=== PATIENT | male | born 1955 | race Caucasian/White ===

== ENCOUNTER 2016-07-20 01:38 | Emergency (ER) | payer SELFPAY ==
[~2016-07-20] VITALS: Ht 172.7 cm; Wt 102.0 kg
[~2016-07-20 01:38] MED LIST: CAC650 PO; FOLIC ACID0.4 MG PO; L20 PO; LAC30L PO; NEO500 PO; VITAMIN B12500 MCG PO; XIFAXAN550 M1 PO
[2016-07-20 03:45] VITALS: BP 96/55
== END 2016-07-20 03:45 | disposition home or self-care (01) ==
LOC: ED 01:38
DX: M54.5 Low back pain (principal); G89.29 Other chronic pain; I10 Essential (primary) hypertension
CPT/HCPCS: J1885

== ENCOUNTER 2016-07-23 00:37 | Emergency (ER) | payer OTHER ==
[2016-07-23 02:20] LABS: BASOPHIL % 0.9 % (0-2)
[2016-07-23 02:26] LABS: RED CELL DISTRIBUTION WIDTH 18.5 % (11.5-14.5)
[2016-07-23 02:28] LABS: CALCIUM 7.6 mg/dL (8.5-10.1); CARBON DIOXIDE 25.9 mmol/L (21-32); CHLORIDE SERUM 105 mmol/L (98-107); CREATININE SERUM 0.7 mg/dL (0.7-1.3); GFR1 > 60 mL/min; GLUCOSE SERUM 115 mg/dL (74-106); PLATELET COUNT 36 x10^3mcL (130-400); POTASSIUM SERUM 3.2 mmol/L (3.5-5.1); SODIUM SERUM 142 mmol/L (136-145)
[2016-07-23 02:32] LABS: ALKALINE PHOSPHATASE 175 U/L (46-116); ALT/SGPT 85 U/L (16-63); AST/SGOT 169 U/L (15-37); BILIRUBIN TOTAL 4.58 mg/dL (0.20-1.00); TOTAL PROTEIN, SERUM 7.7 g/dL (6.4-8.2)
[2016-07-23 02:33] LABS: ALBUMIN 2.8 g/dL (3.4-5.0)
[2016-07-23 04:03] VITALS: BP 133/79
== END 2016-07-23 04:03 | disposition home or self-care (01) ==
LOC: ED 00:37
PROVIDERS: Emergency Medicine
DX: M54.5 Low back pain (principal); R60.0 Localized edema; F10.10 Alcohol abuse, uncomplicated; I10 Essential (primary) hypertension; G89.29 Other chronic pain; Z59.0 Homelessness
CPT/HCPCS: 83880; Q0092

== ENCOUNTER 2016-08-04 01:15 | Emergency (ER) | payer OTHER ==
[2016-08-04 04:18] LABS: CALCIUM 7.6 mg/dL (8.5-10.1); CARBON DIOXIDE 24.4 mmol/L (21-32); CHLORIDE SERUM 109 mmol/L (98-107); CREATININE SERUM 0.6 mg/dL (0.7-1.3); GFR1 > 60 mL/min; GLUCOSE SERUM 104 mg/dL (74-106); POTASSIUM SERUM 3.5 mmol/L (3.5-5.1); SODIUM SERUM 141 mmol/L (136-145)
[2016-08-04 04:19] LABS: RED CELL DISTRIBUTION WIDTH 18.4 % (11.5-14.5)
[2016-08-04 04:20] LABS: PLATELET COUNT 30 x10^3mcL (130-400)
[2016-08-04 04:30] LABS: ALBUMIN 2.7 g/dL (3.4-5.0); ALKALINE PHOSPHATASE 197 U/L (46-116); ALT/SGPT 75 U/L (16-63); AST/SGOT 157 U/L (15-37); BILIRUBIN TOTAL 4.04 mg/dL (0.20-1.00); TOTAL PROTEIN, SERUM 7.7 g/dL (6.4-8.2)
[2016-08-04 04:46] LABS: BAND NEUTROPHIL 2 % (0-10); MONOCYTE 11 % (0-7); PLATELET MORPHOLOGY PLATELETS DECREASED; SEGMENTED NEUTROPHILS 46 % (37-75); ovalocyte/elliptocyte 1+; rbc morphology (normal/abnorm) ABNORMAL (NORMAL); tear drop cell (dacryocyte) 1+
[2016-08-04 06:11] VITALS: BP 128/80
== END 2016-08-04 06:11 | disposition home or self-care (01) ==
LOC: ED 01:15
PROVIDERS: Emergency Medicine
DX: M79.605 Pain in left leg (principal); M79.604 Pain in right leg; R60.9 Edema, unspecified; I10 Essential (primary) hypertension
CPT/HCPCS: 83880

== ENCOUNTER 2016-08-05 23:12 | Emergency (ER) | payer OTHER ==
[2016-08-06 02:38] VITALS: BP 174/74
== END 2016-08-06 02:39 | disposition home or self-care (01) ==
LOC: ED 23:12
DX: R60.0 Localized edema (principal); D61.818 Other pancytopenia; I10 Essential (primary) hypertension; F10.10 Alcohol abuse, uncomplicated; G89.29 Other chronic pain

== ENCOUNTER 2016-09-19 19:52 | Emergency (ER) | payer MEDICAID ==
[2016-09-19 22:09] LABS: BASOPHIL % 1.4 % (0-2)
[2016-09-19 22:11] LABS: PLATELET COUNT 56 x10^3mcL (130-400); RED CELL DISTRIBUTION WIDTH 21.2 % (11.5-14.5)
[2016-09-19 22:23] LABS: CALCIUM 7.9 mg/dL (8.5-10.1); CARBON DIOXIDE 20.1 mmol/L (21-32); CHLORIDE SERUM 109 mmol/L (98-107); CREATININE SERUM 0.6 mg/dL (0.7-1.3); GFR1 > 60 mL/min; GLUCOSE SERUM 103 mg/dL (74-106); POTASSIUM SERUM 3.7 mmol/L (3.5-5.1); SODIUM SERUM 140 mmol/L (136-145)
[2016-09-19 22:26] LABS: ALKALINE PHOSPHATASE 117 U/L (46-116); ALT/SGPT 27 U/L (16-63); AST/SGOT 47 U/L (15-37); BILIRUBIN TOTAL 3.03 mg/dL (0.20-1.00); TOTAL PROTEIN, SERUM 7.3 g/dL (6.4-8.2)
[2016-09-19 22:27] LABS: ALBUMIN 2.4 g/dL (3.4-5.0)
[2016-09-19 23:30] VITALS: BP 114/77
== END 2016-09-19 23:30 | disposition home or self-care (01) ==
LOC: ED 19:52
PROVIDERS: Emergency Medicine
DX: R60.0 Localized edema (principal); I10 Essential (primary) hypertension; K74.60 Unspecified cirrhosis of liver; G89.29 Other chronic pain
CPT/HCPCS: 83880; Q0092

== ENCOUNTER 2016-09-28 21:50 | Emergency (ER) | payer MEDICAID ==
[2016-09-29 01:59] VITALS: BP 135/88
== END 2016-09-29 01:59 | disposition home or self-care (01) ==
LOC: ED 21:50
DX: R60.0 Localized edema (principal); B35.3 Tinea pedis

== ENCOUNTER 2016-10-06 19:08 | Emergency (ER) | payer OTHER ==
[2016-10-06 20:41] VITALS: BP 103/61
== END 2016-10-06 20:40 | disposition home or self-care (01) ==
LOC: ED 19:08
DX: R06.00 Dyspnea, unspecified (principal); G89.29 Other chronic pain; M54.9 Dorsalgia, unspecified; I10 Essential (primary) hypertension; K74.60 Unspecified cirrhosis of liver

== ENCOUNTER 2016-10-06 21:11 | Inpatient (IN) | payer MEDICAID ==
[~2016-10-06] VITALS: Ht 172.7 cm; Wt 104.5 kg
[2016-10-06 23:02] LABS: ALBUMIN 2.7 g/dL (3.4-5.0); ALKALINE PHOSPHATASE 125 U/L (46-116); ALT/SGPT 34 U/L (16-63); AST/SGOT 73 U/L (15-37); BILIRUBIN TOTAL 5.21 mg/dL (0.20-1.00); CARBON DIOXIDE 25.2 mmol/L (21-32); CHLORIDE SERUM 103 mmol/L (98-107); CHOLESTEROL 101 mg/dL (<200); CREATININE SERUM 0.7 mg/dL (0.7-1.3); GFR1 > 60 mL/min; GLUCOSE SERUM 101 mg/dL (74-106); HDL CHOLESTEROL 34 mg/dL (40-60); MAGNESIUM 1.7 mg/dL (1.8-2.4); SODIUM SERUM 137 mmol/L (136-145); TOTAL PROTEIN, SERUM 8.4 g/dL (6.4-8.2)
[2016-10-06 23:09] LABS: MONOCYTE 5 % (0-7); SEGMENTED NEUTROPHILS 55 % (37-75)
[2016-10-06 23:10] LABS: BASOPHIL 1 % (0-2); rbc morphology (normal/abnorm) ABNORMAL (NORMAL)
[2016-10-06 23:11] LABS: PLATELET COUNT 32 x10^3mcL (130-400)
[2016-10-07 01:57] LABS: CHOLESTEROL/HDL RATIO 3.1
[2016-10-07 02:10] LABS: FREE T4 1.38 ng/dL (0.76-1.46); FREE THYROXINE INDEX 2.6 ug/dL (1.4-4.5); T4(THYROXINE) 7.4 ug/dL (4.7-13.3)
[2016-10-07 02:21] VITALS: BP 94/54
[2016-10-07 04:21] LABS: T3 TOTAL 0.88 ng/mL
[2016-10-07 05:49] VITALS: BP 100/58
[2016-10-07 07:16] LABS: PLATELET COUNT 30 x10^3mcL (130-400)
[2016-10-07 07:57] LABS: CALCIUM 7.6 mg/dL (8.5-10.1); CARBON DIOXIDE 24.3 mmol/L (21-32); CHLORIDE SERUM 105 mmol/L (98-107); CREATININE SERUM 0.6 mg/dL (0.7-1.3); GFR1 > 60 mL/min; GLUCOSE SERUM 99 mg/dL (74-106); MAGNESIUM 1.7 mg/dL (1.8-2.4); PHOSPHOROUS 3.9 mg/dL (2.5-4.9); SODIUM SERUM 141 mmol/L (136-145)
[2016-10-07 07:58] LABS: UA SPECIFIC GRAVITY 1.025 (1.005-1.035); microscopic required? YES; urine erythrocyte 2+ (NEGATIVE)
[2016-10-07 08:11] LABS: AMPHETAMINE QUAL UR NONE DETECTED (NEG <=1000)
[2016-10-07 09:54] VITALS: BP 117/63
[2016-10-07 10:19] LABS: BAND NEUTROPHIL 5 % (0-10); BASOPHIL 0 % (0-2); SEGMENTED NEUTROPHILS 48 % (37-75)
[2016-10-07 10:20] LABS: MONOCYTE 17 % (0-7)
[2016-10-07 10:21] LABS: PLATELET MORPHOLOGY PLATELETS DECREASED; rbc morphology (normal/abnorm) ABNORMAL (NORMAL)
[2016-10-07 10:23] LABS: target cell (codocyte) 1+
[2016-10-07 10:24] LABS: ovalocyte/elliptocyte 1+
[2016-10-07 14:20] VITALS: BP 120/78
[2016-10-07 17:59] VITALS: BP 123/73
[2016-10-07 21:51] VITALS: BP 148/73
[2016-10-08 06:12] VITALS: BP 119/79
[2016-10-08 07:14] LABS: CALCIUM 7.7 mg/dL (8.5-10.1); CARBON DIOXIDE 22.7 mmol/L (21-32); CHLORIDE SERUM 105 mmol/L (98-107); CREATININE SERUM 0.6 mg/dL (0.7-1.3); GFR1 > 60 mL/min; GLUCOSE SERUM 87 mg/dL (74-106); MAGNESIUM 1.6 mg/dL (1.8-2.4); PHOSPHOROUS 3.1 mg/dL (2.5-4.9); POTASSIUM SERUM 3.6 mmol/L (3.5-5.1); SODIUM SERUM 139 mmol/L (136-145)
[2016-10-08 07:23] LABS: RED CELL DISTRIBUTION WIDTH 21.3 % (11.5-14.5)
[2016-10-08 07:24] LABS: PLATELET COUNT 37 x10^3mcL (130-400)
[2016-10-08 09:18] LABS: BAND NEUTROPHIL 1 % (0-10); MONOCYTE 10 % (0-7); SEGMENTED NEUTROPHILS 58 % (37-75)
[2016-10-08 09:19] LABS: rbc morphology (normal/abnorm) ABNORMAL (NORMAL)
[2016-10-08 09:21] LABS: PLATELET MORPHOLOGY PLATELETS DECREASED
[2016-10-08 10:09] VITALS: BP 122/753
[2016-10-08] MEDS ORDERED: FOL1 PO (11:38)
[2016-10-08] MEDS ORDERED: THERA TABS1 TAB PO (11:38)
[2016-10-08] MEDS ORDERED: MAC100 PO (11:38)
[2016-10-08] MEDS ORDERED: THI100 PO (11:38)
[2016-10-08] MEDS ORDERED: ALD50 PO (11:40)
[2016-10-08] MEDS ORDERED: LAC PO (14:04)
[2016-10-08] MEDS ORDERED: ATI1 PO (14:07)
[2016-10-08] MEDS ORDERED: LAC30L PO (14:11)
[2016-10-08] MEDS ORDERED: LASIX40 MG PO (14:26)
[2016-10-08 15:02] VITALS: BP 122/753
== END 2016-10-08 16:20 | disposition home or self-care (01) | DRG 816 ==
LOC: ED 21:11 → MU 23:49 → DU 23:49 → MU 10-08 06:04
PROVIDERS: Emergency Medicine; ADMIT Family Medicine
DX: T51.0X1A Toxic effect of ethanol, accidental (unintentional), initial encounter (principal); N17.0 Acute kidney failure with tubular necrosis; E43 Unspecified severe protein-calorie malnutrition; G92 Toxic encephalopathy; D61.818 Other pancytopenia; K70.30 Alcoholic cirrhosis of liver without ascites; I50.30 Unspecified diastolic (congestive) heart failure; N39.0 Urinary tract infection, site not specified; K71.11 Toxic liver disease with hepatic necrosis, with coma; R31.9 Hematuria, unspecified; F10.229 Alcohol dependence with intoxication, unspecified; E87.6 Hypokalemia; E83.42 Hypomagnesemia; I10 Essential (primary) hypertension; Z59.0 Homelessness; Y90.8 Blood alcohol level of 240 mg/100 ml or more; Y92.89 Other specified places as the place of occurrence of the external cause
CPT/HCPCS: 83880; 84439; G0480; J0696; J1940; J3480; J7030; Q0092

== ENCOUNTER 2016-10-09 01:14 | Emergency (ER) | payer MEDICAID ==
[~2016-10-09 01:14] MED LIST changes: +ALD50 PO; +ATI1 PO; +FOL1 PO; +LAC PO; +LASIX40 MG PO; +MAC100 PO; +THERA TABS1 TAB PO; +THI100 PO
[2016-10-09 02:52] LABS: BASOPHIL % 1.4 % (0-2)
[2016-10-09 02:56] LABS: PLATELET COUNT 27 x10^3mcL (130-400); RED CELL DISTRIBUTION WIDTH 21.2 % (11.5-14.5)
[2016-10-09 03:02] LABS: ALKALINE PHOSPHATASE 108 U/L (46-116); ALT/SGPT 25 U/L (16-63); AST/SGOT 52 U/L (15-37); BILIRUBIN TOTAL 5.74 mg/dL (0.20-1.00); CALCIUM 7.8 mg/dL (8.5-10.1); CARBON DIOXIDE 20.3 mmol/L (21-32); CHLORIDE SERUM 105 mmol/L (98-107); CREATININE SERUM 0.8 mg/dL (0.7-1.3); GFR1 > 60 mL/min; GLUCOSE SERUM 125 mg/dL (74-106); SODIUM SERUM 138 mmol/L (136-145); TOTAL PROTEIN, SERUM 7.5 g/dL (6.4-8.2)
[2016-10-09 03:03] LABS: ALBUMIN 2.4 g/dL (3.4-5.0)
[2016-10-09 05:16] VITALS: BP 116/83
== END 2016-10-09 05:16 | disposition home or self-care (01) ==
LOC: ED 01:14
PROVIDERS: Emergency Medicine
DX: R60.0 Localized edema (principal); I10 Essential (primary) hypertension; G89.29 Other chronic pain
CPT/HCPCS: 36415; 83880; J3475; Q0092

== ENCOUNTER 2016-10-12 00:14 | Emergency (ER) | payer MEDICAID ==
[2016-10-12 02:47] VITALS: BP 122/58
== END 2016-10-12 02:47 | disposition home or self-care (01) ==
LOC: ED 00:14
DX: R60.0 Localized edema (principal); G89.29 Other chronic pain; I10 Essential (primary) hypertension

== ENCOUNTER 2016-12-02 21:25 | Emergency (ER) | payer MEDICAID ==
[~2016-12-02] VITALS: Ht 172.7 cm; Wt 104.3 kg
[2016-12-02 23:44] LABS: CARBON DIOXIDE 23.4 mmol/L (21-32); CHLORIDE SERUM 109 mmol/L (98-107); CREATININE SERUM 0.9 mg/dL (0.7-1.3); GFR1 > 60 mL/min; GLUCOSE SERUM 144 mg/dL (74-106); POTASSIUM SERUM 3.3 mmol/L (3.5-5.1); SODIUM SERUM 142 mmol/L (136-145)
[2016-12-02 23:48] LABS: ALKALINE PHOSPHATASE 159 U/L (46-116); ALT/SGPT 28 U/L (16-63); AST/SGOT 74 U/L (15-37); BILIRUBIN TOTAL 4.7 mg/dL (0.20-1.00); TOTAL PROTEIN, SERUM 8.2 g/dL (6.4-8.2)
[2016-12-02 23:49] LABS: ALBUMIN 2.7 g/dL (3.4-5.0)
[2016-12-02 23:57] LABS: RED CELL DISTRIBUTION WIDTH 21.2 % (11.5-14.5)
[2016-12-02 23:58] LABS: PLATELET COUNT 24 x10^3mcL (130-400)
[2016-12-03 00:27] LABS: BAND NEUTROPHIL 4 % (0-10); METAMYELOCTE 1 % (0-2); MONOCYTE 9 % (0-7); SEGMENTED NEUTROPHILS 38 % (37-75)
[2016-12-03 00:29] LABS: rbc morphology (normal/abnorm) ABNORMAL (NORMAL)
[2016-12-03 00:30] LABS: ovalocyte/elliptocyte 1+
[2016-12-03 00:38] VITALS: BP 118/72
== END 2016-12-03 00:38 | disposition home or self-care (01) ==
LOC: ED 21:25
PROVIDERS: Emergency Medicine
DX: R60.0 Localized edema (principal); G89.29 Other chronic pain; K74.60 Unspecified cirrhosis of liver; Z79.899 Other long term (current) drug therapy
CPT/HCPCS: 36415; 83880

== ENCOUNTER 2016-12-23 21:59 | Emergency (ER) | payer MEDICAID ==
[2016-12-24 02:41] VITALS: BP 106/61
== END 2016-12-24 02:30 | disposition home or self-care (01) ==
LOC: ED 21:59
DX: F10.20 Alcohol dependence, uncomplicated (principal); K74.60 Unspecified cirrhosis of liver; B19.20 Unspecified viral hepatitis C without hepatic coma
CPT/HCPCS: Q0162

== ENCOUNTER 2016-12-26 18:21 | Emergency (ER) | payer MEDICAID ==
[2016-12-26 22:33] LABS: BASOPHIL % 0.8 % (0-2)
[2016-12-26 22:39] LABS: RED CELL DISTRIBUTION WIDTH 21.6 % (11.5-14.5)
[2016-12-26 22:40] LABS: PLATELET COUNT 42 x10^3mcL (130-400)
[2016-12-26 22:45] LABS: CARBON DIOXIDE 23.2 mmol/L (21-32); CHLORIDE SERUM 108 mmol/L (98-107); CREATININE SERUM 0.8 mg/dL (0.7-1.3); GFR1 > 60 mL/min; GLUCOSE SERUM 92 mg/dL (74-106); POTASSIUM SERUM 3.5 mmol/L (3.5-5.1); SODIUM SERUM 143 mmol/L (136-145)
[2016-12-26 22:50] LABS: ALKALINE PHOSPHATASE 139 U/L (46-116); ALT/SGPT 28 U/L (16-63); AST/SGOT 73 U/L (15-37); TOTAL PROTEIN, SERUM 7.8 g/dL (6.4-8.2)
[2016-12-26 22:52] LABS: ALBUMIN 2.6 g/dL (3.4-5.0)
[2016-12-26 23:32] VITALS: BP 120/78
[2016-12-29 11:38] LABS: RED BLOOD CELLS 3.85 M/mm3 (4.52-5.90)
== END 2016-12-26 23:33 | disposition home or self-care (01) ==
LOC: ED 18:21
PROVIDERS: Emergency Medicine
DX: K70.30 Alcoholic cirrhosis of liver without ascites (principal)
CPT/HCPCS: 36415

== ENCOUNTER 2017-01-03 11:16 | Emergency (ER) | payer MEDICAID ==
[~2017-01-03] VITALS: Ht 172.7 cm; Wt 99.8 kg
[2017-01-03 12:25] LABS: RED CELL DISTRIBUTION WIDTH 22.5 % (11.5-14.5)
[2017-01-03 12:42] LABS: BAND NEUTROPHIL 2 % (0-10); BASOPHIL 4 % (0-2); MONOCYTE 10 % (0-7); SEGMENTED NEUTROPHILS 72 % (37-75); rbc morphology (normal/abnorm) ABNORMAL (NORMAL)
[2017-01-03 12:43] LABS: PLATELET MORPHOLOGY D
[2017-01-03 13:06] LABS: CALCIUM 7.6 mg/dL (8.5-10.1); CARBON DIOXIDE 24.2 mmol/L (21-32); CHLORIDE SERUM 109 mmol/L (98-107); CREATININE SERUM 0.6 mg/dL (0.7-1.3); GFR1 > 60 mL/min; GLUCOSE SERUM 113 mg/dL (74-106); POTASSIUM SERUM 3.3 mmol/L (3.5-5.1); SODIUM SERUM 141 mmol/L (136-145)
[2017-01-03 13:10] LABS: PLATELET COUNT 39 x10^3mcL (130-400)
[2017-01-03 13:11] LABS: ALKALINE PHOSPHATASE 94 U/L (46-116); ALT/SGPT 19 U/L (16-63); AST/SGOT 54 U/L (15-37); BILIRUBIN TOTAL 4.11 mg/dL (0.20-1.00); TOTAL PROTEIN, SERUM 7.4 g/dL (6.4-8.2)
[2017-01-03 13:13] LABS: ALBUMIN 2.7 g/dL (3.4-5.0)
[2017-01-03 15:50] VITALS: BP 124/76
== END 2017-01-03 15:51 | disposition short-term general hospital (02) ==
LOC: ED 11:16
PROVIDERS: Emergency Medicine
DX: S63.502A Unspecified sprain of left wrist, initial encounter (principal); S16.1XXA Strain of muscle, fascia and tendon at neck level, initial encounter; S01.312A Laceration without foreign body of left ear, initial encounter; S06.5X9A Traumatic subdural hemorrhage with loss of consciousness of unspecified duration, initial encounter; F10.20 Alcohol dependence, uncomplicated; K74.60 Unspecified cirrhosis of liver; B19.20 Unspecified viral hepatitis C without hepatic coma; X58.XXXA Exposure to other specified factors, initial encounter; Y93.89 Activity, other specified; Y99.8 Other external cause status; Y92.89 Other specified places as the place of occurrence of the external cause
CPT/HCPCS: G0480; J7050; P9059; Q0092; Q0162

== ENCOUNTER 2017-02-02 20:56 | Emergency (ER) | payer MEDICAID ==
[2017-02-02 21:44] LABS: CALCIUM 7.6 mg/dL (8.5-10.1); CARBON DIOXIDE 23.7 mmol/L (21-32); CHLORIDE SERUM 109 mmol/L (98-107); CREATININE SERUM 0.7 mg/dL (0.7-1.3); GFR1 > 60 mL/min; GLUCOSE SERUM 100 mg/dL (74-106); POTASSIUM SERUM 3.2 mmol/L (3.5-5.1); SODIUM SERUM 140 mmol/L (136-145)
[2017-02-02 21:50] LABS: LIPASE 141 IU/L (73-393)
[2017-02-03 00:59] VITALS: BP 127/79
== END 2017-02-03 01:00 | disposition home or self-care (01) ==
LOC: ED 20:56
PROVIDERS: Emergency Medicine Emergency Medical Services
DX: F10.129 Alcohol abuse with intoxication, unspecified (principal); E87.6 Hypokalemia; K74.60 Unspecified cirrhosis of liver
CPT/HCPCS: G0480

== ENCOUNTER 2017-02-10 23:03 | Emergency (ER) | payer OTHER ==
[2017-02-11 05:57] VITALS: BP 132/76
== END 2017-02-11 05:57 | disposition home or self-care (01) ==
LOC: ED 23:03
DX: R60.0 Localized edema (principal); K74.60 Unspecified cirrhosis of liver; F10.20 Alcohol dependence, uncomplicated; B19.20 Unspecified viral hepatitis C without hepatic coma

== ENCOUNTER 2017-03-01 19:39 | Emergency (ER) | payer OTHER ==
[2017-03-01 19:56] VITALS: BP 127/79
== END 2017-03-01 21:33 | disposition home or self-care (01) ==
LOC: ED 19:39
DX: R60.0 Localized edema (principal); M79.671 Pain in right foot; M79.672 Pain in left foot; F17.210 Nicotine dependence, cigarettes, uncomplicated; F10.20 Alcohol dependence, uncomplicated; Z59.0 Homelessness

== ENCOUNTER 2017-03-02 19:54 | Emergency (ER) | payer OTHER ==
[2017-03-02 20:47] VITALS: BP 114/62
== END 2017-03-02 20:47 | disposition home or self-care (01) ==
LOC: ED 19:54
DX: M79.1 Myalgia (principal); Z59.0 Homelessness

== ENCOUNTER 2017-03-07 18:41 | Emergency (ER) | payer OTHER ==
[~2017-03-07] VITALS: Ht 172.7 cm; Wt 117.9 kg
[2017-03-08 06:04] VITALS: BP 142/84
== END 2017-03-08 06:04 | disposition home or self-care (01) ==
LOC: ED 18:41
DX: F10.229 Alcohol dependence with intoxication, unspecified (principal); I10 Essential (primary) hypertension; K74.60 Unspecified cirrhosis of liver; B19.20 Unspecified viral hepatitis C without hepatic coma; M79.671 Pain in right foot; M79.672 Pain in left foot

== ENCOUNTER 2017-03-09 20:28 | Emergency (ER) | payer OTHER ==
[~2017-03-09] VITALS: Ht 167.6 cm; Wt 95.2 kg
[2017-03-09 21:14] LABS: CALCIUM 7.6 mg/dL (8.5-10.1); CARBON DIOXIDE 27.4 mmol/L (21-32); CHLORIDE SERUM 106 mmol/L (98-107); CREATININE SERUM 0.7 mg/dL (0.7-1.3); GFR1 > 60 mL/min; GLUCOSE SERUM 103 mg/dL (74-106); POTASSIUM SERUM 3.3 mmol/L (3.5-5.1); SODIUM SERUM 141 mmol/L (136-145)
[2017-03-09 21:41] VITALS: BP 138/92
== END 2017-03-09 21:41 | disposition home or self-care (01) ==
LOC: ED 20:28
PROVIDERS: Emergency Medicine
DX: M79.604 Pain in right leg (principal); M79.605 Pain in left leg; F10.10 Alcohol abuse, uncomplicated; E87.6 Hypokalemia; M79.1 Myalgia; I10 Essential (primary) hypertension; K74.60 Unspecified cirrhosis of liver
CPT/HCPCS: 36415; J1885

== ENCOUNTER 2017-03-13 21:14 | Emergency (ER) | payer OTHER ==
[2017-03-13 21:27] VITALS: BP 121/79
== END 2017-03-13 23:50 | disposition home or self-care (01) ==
LOC: ED 21:14
DX: M79.604 Pain in right leg (principal); M79.605 Pain in left leg; F10.10 Alcohol abuse, uncomplicated; I10 Essential (primary) hypertension

== ENCOUNTER 2017-05-15 01:46 | Emergency (ER) | payer OTHER ==
[~2017-05-15] VITALS: Ht 172.7 cm; Wt 97.5 kg
[2017-05-15 01:58] VITALS: Ht 172.7 cm; Wt 97.5 kg
[2017-05-15 03:04] VITALS: BP 144/78
== END 2017-05-15 03:04 | disposition home or self-care (01) ==
LOC: ED 01:46
DX: R30.0 Dysuria (principal); M79.605 Pain in left leg; M79.604 Pain in right leg; F10.10 Alcohol abuse, uncomplicated; M25.579 Pain in unspecified ankle and joints of unspecified foot

== ENCOUNTER 2017-05-17 22:51 | Emergency (ER) | payer OTHER ==
[2017-05-18 02:50] VITALS: BP 130/77
== END 2017-05-18 02:50 | disposition home or self-care (01) ==
LOC: ED 22:51
DX: F10.129 Alcohol abuse with intoxication, unspecified (principal); B19.20 Unspecified viral hepatitis C without hepatic coma; Z59.0 Homelessness
CPT/HCPCS: G0480; Q0162

== ENCOUNTER 2017-05-21 19:06 | Emergency (ER) | payer OTHER ==
[~2017-05-21] VITALS: Ht 172.7 cm; Wt 99.8 kg
[2017-05-21 19:46] VITALS: Ht 172.7 cm; Wt 99.8 kg
[2017-05-21 22:02] LABS: microscopic required? YES; urine erythrocyte TRACE (NEGATIVE)
[2017-05-21 22:04] VITALS: BP 121/80
[2017-05-21 22:11] LABS: AMPHETAMINE QUAL UR NONE DETECTED (NEG <=1000)
== END 2017-05-21 22:32 | disposition home or self-care (01) ==
LOC: ED 19:06
PROVIDERS: Emergency Medicine
DX: N39.0 Urinary tract infection, site not specified (principal); I10 Essential (primary) hypertension; Z59.0 Homelessness
CPT/HCPCS: 82962

== ENCOUNTER 2017-05-22 03:20 | Emergency (ER) | payer OTHER ==
[~2017-05-22] VITALS: Ht 172.7 cm; Wt 99.8 kg
[2017-05-22 03:29] VITALS: Ht 172.7 cm; Wt 99.8 kg
[2017-05-22 04:27] VITALS: BP 133/78
== END 2017-05-22 04:27 | disposition home or self-care (01) ==
LOC: ED 03:20
DX: R04.0 Epistaxis (principal); I10 Essential (primary) hypertension; F10.20 Alcohol dependence, uncomplicated

== ENCOUNTER 2017-05-24 01:54 | Emergency (ER) | payer OTHER ==
[~2017-05-24] VITALS: Ht 172.7 cm; Wt 99.8 kg
[2017-05-24 02:13] VITALS: BP 136/84; Ht 172.7 cm; Wt 99.8 kg
== END 2017-05-24 03:27 | disposition home or self-care (01) ==
LOC: ED 01:54
DX: S86.912A Strain of unspecified muscle(s) and tendon(s) at lower leg level, left leg, initial encounter (principal); S86.911A Strain of unspecified muscle(s) and tendon(s) at lower leg level, right leg, initial encounter; F10.229 Alcohol dependence with intoxication, unspecified; I10 Essential (primary) hypertension; K74.60 Unspecified cirrhosis of liver; B19.20 Unspecified viral hepatitis C without hepatic coma; X58.XXXA Exposure to other specified factors, initial encounter; Y93.89 Activity, other specified; Y99.8 Other external cause status; Y92.89 Other specified places as the place of occurrence of the external cause

== ENCOUNTER 2017-05-25 19:44 | Inpatient (IN) | payer OTHER ==
[~2017-05-25] VITALS: Ht 172.7 cm; Wt 94.1 kg
[2017-05-25 21:16] LABS: PLATELET COUNT 31 x10^3mcL (130-400); RED CELL DISTRIBUTION WIDTH 18.5 % (11.5-14.5)
[2017-05-25 21:23] LABS: ALKALINE PHOSPHATASE 164 U/L (46-116); ALT/SGPT 34 U/L (16-63); AST/SGOT 91 U/L (15-37); BILIRUBIN TOTAL 5.05 mg/dL (0.20-1.00); CALCIUM 8.2 mg/dL (8.5-10.1); CARBON DIOXIDE 23.7 mmol/L (21-32); CHLORIDE SERUM 104 mmol/L (98-107); CREATININE SERUM 0.7 mg/dL (0.7-1.3); GFR1 > 60 mL/min; GLUCOSE SERUM 89 mg/dL (74-106); SODIUM SERUM 137 mmol/L (136-145)
[2017-05-25 21:24] LABS: TOTAL PROTEIN, SERUM 9.3 g/dL (6.4-8.2)
[2017-05-25 21:25] LABS: ALBUMIN 2.4 g/dL (3.4-5.0)
[2017-05-25 21:26] LABS: POTASSIUM SERUM 2.8 mmol/L (3.5-5.1)
[2017-05-25 21:54] LABS: BAND NEUTROPHIL 3 % (0-10); METAMYELOCTE 1 % (0-2); MONOCYTE 6 % (0-7); SEGMENTED NEUTROPHILS 59 % (37-75)
[2017-05-25 21:56] LABS: PLATELET MORPHOLOGY PLATELETS DECREASED; ovalocyte/elliptocyte 1+; rbc morphology (normal/abnorm) ABNORMAL (NORMAL)
[2017-05-25 23:55] LABS: TOTAL IRON BINDING CAPACITY 345 ug/dL (250-450)
[2017-05-25 23:58] LABS: MAGNESIUM 1.5 mg/dL (1.8-2.4); PHOSPHOROUS 3.4 mg/dL (2.5-4.9)
[2017-05-26] VITALS (8 sets, daily range): BP systolic 123–139; BP diastolic 63–84
[2017-05-26 00:03] LABS: AMPHETAMINE QUAL UR NONE DETECTED (NEG <=1000)
[2017-05-26 00:03] LABS: T3 TOTAL 1.01 ng/mL
[2017-05-26 00:05] LABS: RED BLOOD CELLS 3.6 M/mm3 (4.52-5.90)
[2017-05-26 00:11] LABS: FREE T4 1.31 ng/dL (0.76-1.46); FREE THYROXINE INDEX 2.4 ug/dL (1.4-4.5); T4(THYROXINE) 6.9 ug/dL (4.7-13.3)
[2017-05-26 00:17] LABS: CHOLESTEROL/HDL RATIO 2.6; IRON 223 ug/dL (65-170)
[2017-05-26 07:12] LABS: RED CELL DISTRIBUTION WIDTH 17.7 % (11.5-14.5)
[2017-05-26 07:13] LABS: PLATELET COUNT 25 x10^3mcL (130-400)
[2017-05-26 07:17] LABS: CALCIUM 7.8 mg/dL (8.5-10.1); CARBON DIOXIDE 21.5 mmol/L (21-32); CHLORIDE SERUM 108 mmol/L (98-107); CREATININE SERUM 0.6 mg/dL (0.7-1.3); GFR1 > 60 mL/min; GLUCOSE SERUM 85 mg/dL (74-106); PHOSPHOROUS 2.9 mg/dL (2.5-4.9); POTASSIUM SERUM 3.3 mmol/L (3.5-5.1); SODIUM SERUM 142 mmol/L (136-145)
[2017-05-26 10:34] LABS: BAND NEUTROPHIL 2 % (0-10); BASOPHIL 0 % (0-2); METAMYELOCTE 1 % (0-2); MONOCYTE 9 % (0-7); SEGMENTED NEUTROPHILS 57 % (37-75)
[2017-05-26 10:35] LABS: PLATELET MORPHOLOGY PLATELETS DECREASED; ovalocyte/elliptocyte 1+; rbc morphology (normal/abnorm) ABNORMAL (NORMAL)
[2017-05-27 05:59] VITALS: BP 120/78
[2017-05-27 06:42] LABS: CALCIUM 7.6 mg/dL (8.5-10.1); CARBON DIOXIDE 22.2 mmol/L (21-32); CHLORIDE SERUM 105 mmol/L (98-107); CREATININE SERUM 0.8 mg/dL (0.7-1.3); GFR1 > 60 mL/min; GLUCOSE SERUM 97 mg/dL (74-106); MAGNESIUM 1.3 mg/dL (1.8-2.4); PHOSPHOROUS 2.9 mg/dL (2.5-4.9); POTASSIUM SERUM 3.1 mmol/L (3.5-5.1); SODIUM SERUM 139 mmol/L (136-145)
[2017-05-27 09:11] VITALS: BP 126/70
[2017-05-27 09:36] LABS: BAND NEUTROPHIL 4 % (0-10); SEGMENTED NEUTROPHILS 70 % (37-75)
[2017-05-27 09:37] LABS: MONOCYTE 2 % (0-7); PLATELET MORPHOLOGY PLATELETS DECREASED; rbc morphology (normal/abnorm) ABNORMAL (NORMAL)
[2017-05-27 09:52] VITALS: BP 126/70
[2017-05-27 10:28] LABS: PLATELET COUNT 29 x10^3mcL (130-400)
[2017-05-27] MEDS ORDERED: LEVOFLOXACIN500 M1 PO (10:44)
[2017-05-27] MEDS ORDERED: CLINDAMYCIN HC300 MG PO (10:45)
[2017-05-27] MEDS ORDERED: THERA TABS1 TAB PO (10:51)
[2017-05-27] MEDS ORDERED: ATIVAN1 MG PO (10:53)
[2017-05-27] MEDS ORDERED: LAC PO (13:18)
[2017-05-27] MEDS ORDERED: FOL1 PO (13:18)
[2017-05-27] MEDS ORDERED: THI100 PO (13:18)
[2017-05-27 13:43] VITALS: BP 131/72
[2017-05-27 15:37] LABS: CALCIUM 7.5 mg/dL (8.5-10.1); CARBON DIOXIDE 19.9 mmol/L (21-32); CHLORIDE SERUM 106 mmol/L (98-107); CREATININE SERUM 0.8 mg/dL (0.7-1.3); GFR1 > 60 mL/min; GLUCOSE SERUM 103 mg/dL (74-106); MAGNESIUM 1.7 mg/dL (1.8-2.4); POTASSIUM SERUM 3.7 mmol/L (3.5-5.1); SODIUM SERUM 138 mmol/L (136-145)
[2017-05-27 17:42] VITALS: BP 110/67
[2017-05-27 19:15] VITALS: BP 136/84
[2017-05-28 06:20] VITALS: BP 140/84
[2017-05-28 06:46] LABS: CALCIUM 7.8 mg/dL (8.5-10.1); CARBON DIOXIDE 22.7 mmol/L (21-32); CHLORIDE SERUM 105 mmol/L (98-107); CREATININE SERUM 0.9 mg/dL (0.7-1.3); GFR1 > 60 mL/min; GLUCOSE SERUM 89 mg/dL (74-106); MAGNESIUM 1.5 mg/dL (1.8-2.4); PHOSPHOROUS 3.4 mg/dL (2.5-4.9); POTASSIUM SERUM 3.1 mmol/L (3.5-5.1); SODIUM SERUM 140 mmol/L (136-145)
[2017-05-28 08:11] LABS: PLATELET COUNT 42 x10^3mcL (130-400)
[2017-05-28 09:50] VITALS: BP 133/73
[2017-05-28] MEDS ORDERED: NEO500 PO (10:51)
[2017-05-28] MEDS ORDERED: LAC15L PO (10:53)
[2017-05-28] MEDS ORDERED: MAGOX 400241.3 MG PO (10:58)
[2017-05-28 11:41] LABS: ATYPICAL LYMPH 6 %; BAND NEUTROPHIL 0 % (0-10); MONOCYTE 8 % (0-7); PLATELET MORPHOLOGY D; SEGMENTED NEUTROPHILS 74 % (37-75); rbc morphology (normal/abnorm) NORMAL (NORMAL)
[2017-05-28 13:10] VITALS: BP 122/86
== END 2017-05-28 15:30 | disposition home or self-care (01) | DRG 279 ==
LOC: ED 19:44 → DU 21:41
PROVIDERS: Emergency Medicine; Family Medicine; Family Medicine Sports Medicine
DX: K72.90 Hepatic failure, unspecified without coma (principal); J69.0 Pneumonitis due to inhalation of food and vomit; E43 Unspecified severe protein-calorie malnutrition; D61.818 Other pancytopenia; R56.9 Unspecified convulsions; E87.6 Hypokalemia; K70.30 Alcoholic cirrhosis of liver without ascites; B18.2 Chronic viral hepatitis C; N39.0 Urinary tract infection, site not specified; T51.0X1A Toxic effect of ethanol, accidental (unintentional), initial encounter; I10 Essential (primary) hypertension; F10.239 Alcohol dependence with withdrawal, unspecified; Y90.9 Presence of alcohol in blood, level not specified; Z68.31 Body mass index [BMI] 31.0-31.9, adult
CPT/HCPCS: 83880; 84439; G0480; J1956; J2060; J3475; J3480; J3490; J7030; J7040; J7620; Q0092